=== PATIENT | male | born 2000 | race Caucasian/White ===

== ENCOUNTER 2022-10-05 10:21 | Emergency (ER) | payer OTHER ==
[2022-10-05] MEDS ORDERED: Fluorescein 1 MG Ophth Strip EYERT ONE (11:34)
[2022-10-05] MEDS ORDERED: Proparacaine 0.5% Ophth Soln 15 ML Bottle EYERT ONE (11:34)
[2022-10-05] MEDS ORDERED: Erythromycin Base 0.5% Ophth Oint 1 GM Tube EYERT ONE (12:12)
== END 2022-10-05 13:15 | disposition home or self-care (01) ==
LOC: JD.ED 10:21
DX: S05.01XA Injury of conjunctiva and corneal abrasion without foreign body, right eye, initial encounter (principal); I10 Essential (primary) hypertension; F17.210 Nicotine dependence, cigarettes, uncomplicated; Z91.040 Latex allergy status; Z91.013 Allergy to seafood; Z91.018 Allergy to other foods; W22.09XA Striking against other stationary object, initial encounter; Y99.0 Civilian activity done for income or pay
CPT/HCPCS: 99283; A9270